=== PATIENT | female | born 1950 ===

== ENCOUNTER 2021-05-13 06:04 | Inpatient (IN) | payer MEDICARE, MEDICAID ==
[2021-05-13 06:47] VITALS: BMI 29.9
[2021-05-13] MEDS ORDERED: Bisacodyl 5 MG TAB PO PRN (07:23)
[2021-05-13] MEDS ORDERED: HYDROcodone/Acetaminophen 5/325 mg Tablet PO PRN (07:23)
[2021-05-13] MEDS ORDERED: Acetaminophen 325 MG TAB PO PRN (07:23)
[2021-05-13] MEDS ORDERED: Morphine 2 MG/ML VIAL SLOW IVP PRN (07:27)
[2021-05-13] MEDS ORDERED: Sodium Chloride 0.9% 1,000 ML IV SCH (07:30)
[2021-05-13] MEDS ORDERED: Dextrose 5% in Water 1,000 ML IV PRN (07:56)
[2021-05-13] MEDS ORDERED: Dextrose 50% Abboject 50 ML SYRINGE SLOW IVP PRN (07:56)
[2021-05-13] MEDS ORDERED: Ondansetron PF 4 MG/2 ML Vial IVP PRN (08:00)
[2021-05-13] MEDS ORDERED: Piperacillin/Tazobactam 3.375 GM in Sodium Chloride 0.9% 100 ML IVPB SCH ×2 (08:00→09:00)
[2021-05-13 08:04] LABS: #Eosinphils 0.1 thou/uL (0.0-0.7); #Lymphocytes 1.6 thou/uL (1.20-3.40); #Monocytes 0.4 thou/uL (0.11-0.59); %Basophils 0.8 % (0.0-1.0); %Eosinophils 2.1 % (0.0-10.0); %Lymphocytes 25.7 % (21.0-51.0); %Monocytes 6.4 % (0.0-10.0); %Neutrophils 64.9 % (42.0-75.0); Hemoglobin 11.9 g/dL (12.0-16.0); Mean Corpuscular HGB CONC 33.6 g/dL (32.0-36.0); Mean Corpuscular Hemoglobin 31.1 pg (27.0-31.0); Mean Corpuscular Volume 92.7 fL (78.0-98.0); Mean Platelet Volume 8.6 fL (7.4-10.4); Platelet Count 170 thou/uL (130-400); RBC Distribution Width 12.9 % (11.5-14.5); Red Blood Cell (RBC) Count 3.84 mill/uL (4.20-5.40); White Blood Cell (WBC) Count 6.2 thou/uL (4.8-10.8)
[2021-05-13 08:15] LABS: ALT (SGPT) 77 U/L (8-55); AST (SGOT) 83 U/L (5-34); Albumin 3.4 g/dL (3.4-4.8); Alkaline Phosphatase 304 U/L (40-110); Anion Gap 13 mmol/L (10-20); BUN (Urea Nitrogen) 17 mg/dL (9.8-20.1); Bilirubin, Total 3.4 mg/dL (0.2-1.2); Calc. Creatinine Clearance 81 mL/min (70-130); Calcium 7.7 mg/dL (7.8-10.44); Carbon Dioxide 23 mmol/L (23-31); Chloride 107 mmol/L (98-107); Globulin 2.8 g/dL (2.4-3.5); Glucose 152 mg/dL (83-110); Protein, Total 6.2 g/dL (5.8-8.1); Sodium 140 mmol/L (136-145)
[2021-05-13 08:19] LABS: Potassium 2.8 mmol/L (3.5-5.1)
[2021-05-13] MEDS ORDERED: Morphine 4 MG/ML VIAL SLOW IVP PRN (08:46)
[2021-05-13] MEDS: Famotidine/PF 20 mg/2ml Vial SLOW IVP SCH ×2 (09:45→21:11)
[2021-05-13] MEDS: Nicotine 14 MG PATCH TD SCH (09:46)
[2021-05-13 10:34] LABS: Bilirubin 1+ (Negative); Blood, Urine Negative (Negative); Clarity Clear (Clear); Glucose, Urine (Dipstick) Normal (Negative); Ketone, Urine Negative (Negative); Leukocyte 500 Leu/uL (Negative); Nitrite Negative (Negative); Protein, Urine (Dipstick) 20 mg/dL (Neg-Trace); Specific Gravity, Urine 1.031 (1.002-1.036); Squamous Epithelial 0-3 HPF (0-3); WBC/HPF 21-50 HPF (0-3)
[2021-05-13 10:41] LABS: Bacteria/HPF 1+ HPF (None Seen)
[2021-05-13] MEDS ORDERED: Ketorolac Tromethamine 30 MG/ML VIAL ONE (10:48)
[2021-05-13] MEDS ORDERED: Dexamethasone 20 MG/5 ML VIAL ONE ×2 (10:48→13:09)
[2021-05-13] MEDS ORDERED: PROPOFOL 200 MG/20 ML VIAL ONE ×2 (10:48→13:09)
[2021-05-13] MEDS ORDERED: Lidocaine 1% PF 5 ML VIAL ONE ×2 (10:48→13:09)
[2021-05-13] MEDS ORDERED: Ondansetron PF 4 MG/2 ML Vial ONE ×2 (10:48→13:09)
[2021-05-13] MEDS ORDERED: Rocuronium Bromide 10 MG/ML (10ML VIAL) ONE (10:48)
[2021-05-13] MEDS ORDERED: Indomethacin 50 MG SUPP ONE ×2 (12:04→12:21)
[2021-05-13] MEDS ORDERED: Iothalamate Meglumine 60% 50 ML VIAL FS ONE ×2 (12:05→12:20)
[2021-05-13] MEDS ORDERED: Fentanyl 100 MCG/2 ML VIAL ONE (12:48)
[2021-05-13] MEDS ORDERED: Glycopyrrolate 0.2 MG/ML 5 ML SYRINGE ONE (13:09)
[2021-05-13] MEDS ORDERED: Promethazine HCl 25 MG/ML VIAL ONE (13:51)
[2021-05-13] MEDS ORDERED: Ondansetron HCl/PF 4 MG/2 ML Vial IVP PRN (13:53)
[2021-05-13] MEDS ORDERED: Promethazine HCl 25 MG/ML VIAL IM PRN (13:53)
[2021-05-13] MEDS ORDERED: Promethazine HCl 25 MG/ML VIAL IVPB PRN (13:53)
[2021-05-13] MEDS ORDERED: Sodium Chloride For Inhalation 0.9% 3 ML NEB ONE ×2 (14:01)
[2021-05-13] MEDS: Sodium Chloride 0.9% 1,000 ML IV SCH (17:00)
[2021-05-13] MEDS: Piperacillin/Tazobactam 3.375 GM in Sodium Chloride 0.9% 100 ML IVPB SCH (17:01)
[2021-05-13] MEDS ORDERED: Potassium Chloride 20 MEQ TAB PO SCH (19:30)
[2021-05-14] MEDS: Piperacillin/Tazobactam 3.375 GM in Sodium Chloride 0.9% 100 ML IVPB SCH ×2 (01:07→08:53)
[2021-05-14] MEDS: Sodium Chloride 0.9% 1,000 ML IV SCH ×2 (01:08→08:53)
[2021-05-14 04:52] LABS: #Lymphocytes 0.6 thou/uL (1.20-3.40); #Monocytes 0.1 thou/uL (0.11-0.59); #Neutrophils 4.8 thou/uL (1.40-6.50); %Eosinophils 0.2 % (0.0-10.0); %Lymphocytes 11.3 % (21.0-51.0); %Monocytes 2.2 % (0.0-10.0); %Neutrophils 86.3 % (42.0-75.0); Hemoglobin 12.8 g/dL (12.0-16.0); Mean Corpuscular HGB CONC 33.2 g/dL (32.0-36.0); Mean Corpuscular Hemoglobin 30.4 pg (27.0-31.0); Mean Corpuscular Volume 91.5 fL (78.0-98.0); Mean Platelet Volume 9.2 fL (7.4-10.4); Platelet Count 188 thou/uL (130-400); RBC Distribution Width 12.7 % (11.5-14.5); White Blood Cell (WBC) Count 5.6 thou/uL (4.8-10.8)
[2021-05-14 05:27] LABS: ALT (SGPT) 103 U/L (8-55); AST (SGOT) 131 U/L (5-34); Albumin 3.7 g/dL (3.4-4.8); Alkaline Phosphatase 345 U/L (40-110); Anion Gap 16 mmol/L (10-20); BUN (Urea Nitrogen) 11 mg/dL (9.8-20.1); Bilirubin, Total 3.2 mg/dL (0.2-1.2); Calc. Creatinine Clearance 79 mL/min (70-130); Calcium 8.2 mg/dL (7.8-10.44); Carbon Dioxide 22 mmol/L (23-31); Chloride 105 mmol/L (98-107); Globulin 3.5 g/dL (2.4-3.5); Glucose 309 mg/dL (83-110); Potassium 3.4 mmol/L (3.5-5.1); Protein, Total 7.2 g/dL (5.8-8.1); Sodium 140 mmol/L (136-145)
[2021-05-14] MEDS: Famotidine/PF 20 mg/2ml Vial SLOW IVP SCH ×2 (08:50→21:16)
[2021-05-14] MEDS: Nicotine 14 MG PATCH TD SCH (08:53)
[2021-05-14] MEDS ORDERED: Bupivacaine PF 0.5% 30 ML VIAL ONE (13:58)
[2021-05-14] MEDS ORDERED: Lidocaine 1% w/Epinephrine 1:100K 20 ML VIAL ONE (13:58)
[2021-05-14] MEDS ORDERED: traMADol HCl 50 MG TAB PO PRN (14:14)
[2021-05-14] MEDS ORDERED: Ibuprofen 600 MG TAB PO PRN (14:14)
[2021-05-14] MEDS ORDERED: Fentanyl 100 MCG/2 ML VIAL ONE ×5 (14:14→16:01)
[2021-05-14] MEDS ORDERED: Acetaminophen 500 MG TAB PO SCH (14:15)
[2021-05-14] MEDS ORDERED: SUGAMMADEX SODIUM 200 MG/2 ML VIAL ONE (14:17)
[2021-05-14] MEDS ORDERED: Ondansetron PF 4 MG/2 ML Vial ONE (14:23)
[2021-05-14] MEDS ORDERED: Glycopyrrolate 0.2 MG/ML 5 ML SYRINGE ONE (14:23)
[2021-05-14] MEDS ORDERED: Dexamethasone 20 MG/5 ML VIAL ONE (14:23)
[2021-05-14] MEDS ORDERED: PROPOFOL 200 MG/20 ML VIAL ONE (14:23)
[2021-05-14] MEDS ORDERED: Ketorolac Tromethamine 30 MG/ML VIAL ONE (14:23)
[2021-05-14] MEDS ORDERED: Labetalol HCl 100 MG/20 ML VIAL ONE (14:23)
[2021-05-14] MEDS ORDERED: Rocuronium Bromide 10 MG/ML (10ML VIAL) ONE (14:23)
[2021-05-14] MEDS ORDERED: Acetaminophen 500 MG TAB PO PRN (17:00)
[2021-05-14] MEDS ORDERED: Non-Formulary Item 1 EACH (Insulin Detemir [Levemir Flextouch] 100 UNIT/ML Insuln.Pen) SC SCH (17:00)
[2021-05-14] MEDS: Insulin Regular 300 UNITS/3 ML VIAL SC PRN (18:07)
[2021-05-14] MEDS: Lantus 1000 UNITS/10 ML VIAL SC SCH (21:15)
[2021-05-15] MEDS: Insulin Regular 300 UNITS/3 ML VIAL SC PRN ×2 (00:02→06:07)
[2021-05-15] MEDS ORDERED: metFORMIN 500 MG TAB PO SCH (08:00)
[2021-05-15 08:41] LABS: #Basophils 0.1 thou/uL (0.0-0.2); #Lymphocytes 1.5 thou/uL (1.20-3.40); #Monocytes 0.6 thou/uL (0.11-0.59); #Neutrophils 8.4 thou/uL (1.40-6.50); %Basophils 0.5 % (0.0-1.0); %Eosinophils 0.2 % (0.0-10.0); %Lymphocytes 14.4 % (21.0-51.0); %Monocytes 5.2 % (0.0-10.0); %Neutrophils 79.8 % (42.0-75.0); Hemoglobin 12.3 g/dL (12.0-16.0); Mean Corpuscular HGB CONC 33.3 g/dL (32.0-36.0); Mean Corpuscular Hemoglobin 30.8 pg (27.0-31.0); Mean Corpuscular Volume 92.6 fL (78.0-98.0); Mean Platelet Volume 8.8 fL (7.4-10.4); Platelet Count 197 thou/uL (130-400); Red Blood Cell (RBC) Count 3.99 mill/uL (4.20-5.40); White Blood Cell (WBC) Count 10.5 thou/uL (4.8-10.8)
[2021-05-15 08:58] VITALS: BP 127/68; TEMP 97
[2021-05-15] MEDS ORDERED: Metoprolol Tartrate 50 MG TAB PO SCH (09:00)
[2021-05-15] MEDS ORDERED: Atorvastatin Calcium 40 MG TAB PO SCH (09:00)
[2021-05-15] MEDS ORDERED: Aspirin Chewable 81 MG TAB PO SCH (09:00)
[2021-05-15] MEDS ORDERED: Nabumetone 500 MG TAB PO SCH (09:00)
[2021-05-15] MEDS ORDERED: Polyethylene Glycol 3350 17 GM Packet PO SCH (09:00)
[2021-05-15 09:11] LABS: ALT (SGPT) 105 U/L (8-55); AST (SGOT) 134 U/L (5-34); Albumin 3.5 g/dL (3.4-4.8); Alkaline Phosphatase 279 U/L (40-110); Anion Gap 18 mmol/L (10-20); BUN (Urea Nitrogen) 13 mg/dL (9.8-20.1); Bilirubin, Total 1.2 mg/dL (0.2-1.2); Calc. Creatinine Clearance 86 mL/min (70-130); Calcium 7.7 mg/dL (7.8-10.44); Carbon Dioxide 20 mmol/L (23-31); Chloride 107 mmol/L (98-107); Glucose 242 mg/dL (83-110); Lipase 53 U/L (8-78); Potassium 3.3 mmol/L (3.5-5.1); Protein, Total 6.5 g/dL (5.8-8.1); Sodium 142 mmol/L (136-145)
[2021-05-15] MEDS: Lantus 1000 UNITS/10 ML VIAL SC SCH (09:20)
[2021-05-15] MEDS: Nicotine 14 MG PATCH TD SCH (09:22)
== END 2021-05-15 10:46 | disposition home or self-care (01) | DRG 417 ==
LOC: INTOOBSV 06:09 → 2NO 06:09 → OBSVTOIN 06:09 → ONC 05-14 16:13 → OBSVTOIN 05-14 16:42
PROVIDERS: ADMIT Internal Medicine; ATTEND Internal Medicine
PROC: 0F798ZZ Dilation of Common Bile Duct, Via Natural or Artificial Opening Endoscopic (ICD-10-PCS; 2021-05-13)
PROC: 0FC98ZZ Extirpation of Matter from Common Bile Duct, Via Natural or Artificial Opening Endoscopic (ICD-10-PCS; 2021-05-13)
PROC: 0FT44ZZ Resection of Gallbladder, Percutaneous Endoscopic Approach (ICD-10-PCS; principal; 2021-05-14)
DX: K80.62 Calculus of gallbladder and bile duct with acute cholecystitis without obstruction (principal); K85.10 Biliary acute pancreatitis without necrosis or infection; E11.9 Type 2 diabetes mellitus without complications; E66.9 Obesity, unspecified; E78.5 Hyperlipidemia, unspecified; D35.02 Benign neoplasm of left adrenal gland; N28.1 Cyst of kidney, acquired; K57.10 Diverticulosis of small intestine without perforation or abscess without bleeding; I11.9 Hypertensive heart disease without heart failure; E87.6 Hypokalemia; J44.9 Chronic obstructive pulmonary disease, unspecified; F17.210 Nicotine dependence, cigarettes, uncomplicated; R13.10 Dysphagia, unspecified; Z79.84 Long term (current) use of oral hypoglycemic drugs; Z79.82 Long term (current) use of aspirin; Z68.30 Body mass index [BMI] 30.0-30.9, adult; Z79.4 Long term (current) use of insulin; Z79.899 Other long term (current) drug therapy; Z90.49 Acquired absence of other specified parts of digestive tract
CPT/HCPCS: 36415; 36416; 74181; 74330; 76705; 80053; 81001; 82150; 83605; 83690; 85025; 88304; 93005; 93010; 96374; 96375; 96376; G0378; J1100; J1610; J1815; J1885; J2405; J2543; J2550; J2704; J3010; J3490; J7050; J7620; Q9961-U8; S0020; S0028